=== PATIENT | male | born 1950 | race African-American/Black ===

== ENCOUNTER 2017-08-18 19:23 | Emergency (ER) | payer OTHER ==
[~2017-08-18] VITALS: Ht 167.6 cm; Wt 80.7 kg
--- NOTE | 2017-08-18 19:23 | NUR ---
to bed 10 bib paramedics c/o R sided chest pain radiating to L since 1700. pt aaox4 no acute distress noted, resp even and unlabored. skin warm nondiaphoretic. place pt on cardiac monitoring, continuous pox. er md at bedside to eval pt with orders received. will carry out orders. sl 20g to [facility] guest experience captain. will carry out orders.
[2017-08-18] MEDS ORDERED: NITROGLYCERIN PACKET 1 GM PACKET TD ONE (19:30)
[2017-08-18] MEDS ORDERED: ONDANSETRON HCL/PF 4 MG/2 ML VIAL IVP ONE (19:30)
[2017-08-18] MEDS ORDERED: MORPHINE SULFATE INJ 2 MG/ML DISP.SYRIN IV ONE (19:30)
--- NOTE | 2017-08-18 19:36 | NUR ---
pt very agitated, keeps trying to get out of bed, diaphoretic, c/o BLE pain. er md made aware.
[2017-08-18] MEDS ORDERED: ONDANSETRON HCL/PF 4 MG/2 ML VIAL ONE (19:41)
--- NOTE | 2017-08-18 19:41 | NUR ---
blood drawn by charcoal kiln burner.
[2017-08-18] MEDS ORDERED: NITROGLYCERIN PACKET 1 GM PACKET ONE (19:42)
[2017-08-18] MEDS ORDERED: MORPHINE SULFATE INJ 4 MG/ML DISP.SYRIN ONE (19:42)
--- NOTE | 2017-08-18 19:43 | NUR ---
er md at bedside to eval pt with orders receivewd. pt remains very restless and agitated at this time. rn to medicate pt.
[2017-08-18 19:48] LABS: BASOPHILS # (AUTO) 0.5 /CMM (0.0-0.2); BASOPHILS % (AUTO) 4.6 % (0.0-2.0); EOSINOPHILS % (AUTO) 1.1 % (0.0-6.0); HEMATOCRIT 44 % (39-51); HEMOGLOBIN 14.9 g/dL (13.5-17.5); LYMPHOCYTES # (AUTO) 2.4 /CMM (0.8-4.8); LYMPHOCYTES % (AUTO) 22.3 % (20.0-44.0); MEAN CORPUSCULAR HGB CONC 34 g/dl (31.0-36.0); MEAN CORPUSCULAR VOLUME 89 fL (80-96); MONOCYTES # (AUTO) 0.8 /CMM (0.1-1.30); MONOCYTES % (AUTO) 7.3 % (2.0-12.0); NEUTROPHILS # (AUTO) 6.8 /CMM (1.8-8.9); NEUTROPHILS % (AUTO) 64.7 % (43.0-81.0); PLATELET COUNT (AUTO) 199 /CMM (150-450); RDW COEFFICIENT OF VARIATION 12.2 (11.5-15.0); RED BLOOD CELL COUNT(AUTO) 4.93 MIL/uL (4.5-6.0); WHITE BLOOD COUNT (AUTO) 10.6 K/uL (4.3-11.0)
--- NOTE | 2017-08-18 19:50 | NUR ---
pt medicated by rn per er md order.
[2017-08-18] MEDS ORDERED: LORAZEPAM INJ 2 MG/ML VIAL ONE ×2 (19:51→20:43)
--- NOTE | 2017-08-18 19:55 | NUR ---
pt medicated with ativan 1mg ivp given by rn per er md order.
[2017-08-18] MEDS ORDERED: LORAZEPAM INJ 2 MG/ML VIAL IV ONE ×2 (20:00)
[2017-08-18 20:02] LABS: CALCIUM, SERUM 9.2 mg/dL (8.5-10.1); CARBON DIOXIDE 31 mmol/L (21-32); CHLORIDE 100 mmol/L (98-107); CREATININE 1.6 mg/dL (0.6-1.3); GLUCOSE 93 mg/dL (74-106); POTASSIUM 3.4 mmol/L (3.5-5.1); SODIUM SERUM 138 mmol/L (136-145); UREA NITROGEN, BLOOD 23 mg/dL (7-18)
--- NOTE | 2017-08-18 20:03 | NUR ---
pt resting quietly, no acute distress noted, resp even and unlabored. call light within reach. will continue to monitor pt closely.
[2017-08-18 20:08] LABS: INR 0.98 (0.85-1.15)
[2017-08-18 20:12] LABS: TROPONIN I < 0.017 ng/mL (0.00-0.056)
--- NOTE | 2017-08-18 20:25 | NUR ---
lab results received er made aware.
--- NOTE | 2017-08-18 20:37 | NUR ---
CALLED [facility], PRESENTED PT, AWAITING CALL BACK FROM [facility]
--- NOTE | 2017-08-18 21:14 | NUR ---
pt transported to radiology for ct.
[2017-08-18] MEDS ORDERED: IOHEXOL-350 100 ML VIAL IV ONE (21:19)
[2017-08-18] MEDS ORDERED: IV NS 0.9% 250 ML IV ONE (21:19)
--- NOTE | 2017-08-18 21:34 | NUR ---
pt back from radiology. pending ct result.
--- NOTE | 2017-08-18 21:35 | NUR ---
RECEIVED A CALL FROM [employer] LAURA, PATIENT HAS BEEN ACCEPTED BY DR MCGEE AT [facility]. ALS TRANSPORTATION WILL BE HERE @ 3597 AND PATIENT WILL BE TRANSPORTED TO THE ED.
--- NOTE | 2017-08-18 21:36 | NUR ---
[facility] #
[2017-08-18 22:22] VITALS: BP 125/63
--- NOTE | 2017-08-18 22:23 | NUR ---
report called to [facility]. awaiting transport.
--- NOTE | 2017-08-18 22:32 | NUR ---
[facility]
--- NOTE | 2017-08-18 22:43 | NUR ---
CALLED [facility] TO READ CTA
== END 2017-08-18 22:40 | disposition short-term general hospital (02) ==
LOC: ER 19:24
DX: R07.89 Other chest pain (principal); M54.9 Dorsalgia, unspecified; G89.29 Other chronic pain; E03.9 Hypothyroidism, unspecified; F32.9 Major depressive disorder, single episode, unspecified; F41.9 Anxiety disorder, unspecified; I10 Essential (primary) hypertension; I25.10 Atherosclerotic heart disease of native coronary artery without angina pectoris; K21.9 Gastro-esophageal reflux disease without esophagitis
CPT/HCPCS: 36415; 71045-TC; 80048-TC; 84484-TC; 85025-TC; 85730-TC; A4606; J2060; J2270; J2405; J7050; Q9967; Z7610